=== PATIENT | female | born 1980 | race African-American/Black ===

== ENCOUNTER → 2016-10-07 | Outpatient (CLI) | payer MEDICAID ==
[~2016-10-07] MED LIST: FERR325T PO; PERC5TAB12 PO
== END ==
LOC: HPND 09:59
PROVIDERS: ATTEND Obstetrics & Gynecology
DX: O09.529 Supervision of elderly multigravida, unspecified trimester (principal); O35.0XX0 Maternal care for (suspected) central nervous system malformation in fetus, not applicable or unspecified
CPT/HCPCS: 76816; 76825; 76827; 93325

== ENCOUNTER → 2016-11-04 | Outpatient (CLI) | payer MEDICAID | LOC: HPND 09:26 | PROVIDERS: ATTEND Obstetrics & Gynecology | DX: O35.8XX0 Maternal care for other (suspected) fetal abnormality and damage, not applicable or unspecified (principal); O35.0XX0 Maternal care for (suspected) central nervous system malformation in fetus, not applicable or unspecified | CPT/HCPCS: 76816 ==